=== PATIENT | female | born 1940 | race Caucasian/White ===

== ENCOUNTER 2023-01-31 13:13 | Emergency (ER) | payer MEDICARE | END 2023-01-31 14:45 | disposition home or self-care (01) | LOC: NAV ERS 13:13 | DX: Z93.1 Gastrostomy status (principal); I10 Essential (primary) hypertension | CPT/HCPCS: 74018; 99283 ==

== ENCOUNTER 2023-03-26 16:01 | Emergency (ER) | payer MEDICARE, MEDICAID ==
[2023-03-26 17:02] LABS: Hematocrit 39.3 % (36.0-47.0); Hemoglobin 13.3 g/dL (12.0-16.0); Lymphocytes 15 % (21-51); MDiff Complete? YES; Mean Corpuscular Hemoglobin 30.4 pg (27.0-31.0); Mean Corpuscular Volume 89.4 fl (78.0-98.0); Mean Platelet Volume 5.3 fL (7.4-10.4); Monocytes 4 % (0-10); Neutrophil 81 % (42-75); Platelet Adequacy Comment Appears Adequate; Platelet Count 300 10x3/uL (130-400); RBC Distribution Width 12.2 % (11.5-14.5); Red Blood Cell (RBC) Count 4.39 mill/uL (4.20-5.40); White Blood Cell (WBC) Count 10.4 10x3/uL (4.8-10.8)
[2023-03-26 17:04] LABS: ALT (SGPT) 19 U/L (8-55); AST (SGOT) 27 U/L (5-34); Alkaline Phosphatase 74 U/L (40-110); Anion Gap 15 mmol/L (10-20); BUN (Urea Nitrogen) 24 mg/dL (9.8-20.1); Bilirubin, Total 0.6 mg/dL (0.2-1.2); Calc. Creatinine Clearance 0 mL/min (70-130); Calcium 8.6 mg/dL (7.8-10.44); Carbon Dioxide 28 mmol/L (23-31); Chloride 93 mmol/L (98-107); Estimated GFR 82; Globulin 3.3 g/dL (2.4-3.5); Glucose 91 mg/dL (83-110); Magnesium 2.1 mg/dL (1.6-2.6); Potassium 5.7 mmol/L (3.5-5.1); Protein, Total 6.3 g/dL (5.8-8.1); Sodium 130 mmol/L (136-145)
[2023-03-26 17:05] LABS: Troponin I 0.039 ng/mL (< 0.028)
[2023-03-26] MEDS ORDERED: Aspirin 300 MG Suppository ONE (18:45)
[2023-03-26] MEDS ORDERED: Sodium Chloride 0.9% 100 ML ONE (19:17)
[2023-03-26] MEDS ORDERED: Piperacillin/Tazobactam 4.5 GM VIAL ONE (19:17)
== END 2023-03-26 19:58 | disposition short-term general hospital (02) ==
LOC: NAV ERS 16:01
DX: R00.1 Bradycardia, unspecified (principal); R79.89 Other specified abnormal findings of blood chemistry; J91.8 Pleural effusion in other conditions classified elsewhere; K94.23 Gastrostomy malfunction; I10 Essential (primary) hypertension
CPT/HCPCS: 36415; 71045; 80053; 83735; 83880; 84484; 85025; 87040; 93005; 94760; 96374; J2543; J3490